=== PATIENT | female | born 1940 | race Caucasian/White ===

== ENCOUNTER 2022-03-26 15:29 | Inpatient (IN) ==
[2022-03-26] MEDS ORDERED: Naloxone 0.4 MG/ML INJ IVP PRN (21:47)
[2022-03-26] MEDS ORDERED: Ringers Solution, Lactated 1,000 ML IVC ONE (22:10)
[2022-03-26 22:51] LABS: Basophils # 0.1 K/mcL (0.0-0.2); Basophils % 0.2 %; Hematocrit 38.6 % (35.3-44.9); Hemoglobin 12.3 g/dL (11.5-15.4); Immature Granulocytes % 1.8 % (0-4); Lymphocytes % 2.4 %; Mean Corpuscular HGB Conc 31.9 g/dL (31.6-35.5); Mean Corpuscular Hemoglobin 32.7 pg (28.0-33.3); Mean Corpuscular Volume 102.7 fL (83.0-100.0); Mean Platelet Volume 9.3 fL (9.4-12.4); Monocytes # 1.6 K/mcL (0.0-1.3); Monocytes % 3.8 %; Platelet Count 231 K/mcL (140-400); Red Blood Count 3.76 M/mcL (3.82-4.97); Red Cell Distribution Width 17.2 % (11.5-14.5); Segmented Neutrophils % 91.8 %
[2022-03-26 22:54] LABS: Neutrophils # 39.7 K/mcL (1.6-8.9)
[2022-03-26 22:55] LABS: White Blood Count 43.2 K/mcL (4.3-11.1)
[2022-03-26 23:09] LABS: Anisocytosis 1+ (Not Present); Platelet Estimate Normal (Normal)
[2022-03-26 23:44] LABS: Albumin 2.1 g/dL (3.5-5.7); Albumin/Globulin Ratio 0.8 (1.1-2.2); Bilirubin,Total 1.1 mg/dL (0.3-1.0); Calcium 7.2 mg/dL (8.6-10.3); Globulin 2.7 g/dL (2.4-3.5); Magnesium 1.6 mg/dL (1.6-2.6); Phosphorous 5.3 mg/dL (2.7-4.5); Total Protein 4.8 g/dL (6.4-8.9)
[2022-03-26 23:45] LABS: Potassium 6.8 mEq/L (3.5-5.1)
[2022-03-26] MEDS ORDERED: 0.9 % Sodium Chloride 1,000 ML IVC SCH (23:45)
[2022-03-26] MEDS ORDERED: Calcium Gluconate 1gm/50mL 1 GM/50 ML BAG IVPB PRN (23:49)
[2022-03-27] MEDS ORDERED: D5% in Water 1,000 ML IVC PRN (00:59)
[2022-03-27] MEDS ORDERED: *HR* Dextrose 50 % in Water (Syg) 50 ML SYRINGE IVP PRN (00:59)
[2022-03-27] MEDS ORDERED: Dextrose Gel 15 GM/37.5 ML TUBE PO PRN ×2 (00:59)
[2022-03-27] MEDS ORDERED: Ertapenem 1,000 MG in 0.9 % Sodium Chloride Mini Bag 100 ML IVPB SCH (01:00)
[2022-03-27] MEDS: MetroNIDAZOLE 500 MG/100 ML 500 MG/100 ML BAG IVPB SCH ×2 (01:09→07:58)
[2022-03-27] MEDS ORDERED: Albumin 25% 25gram/100mL 25 GM/100 ML IV.SOLN IVPB ONE (03:04)
[2022-03-27 04:57] LABS: Red Blood Count 3.81 M/mcL (3.82-4.97)
[2022-03-27 04:57] LABS: VBG Ionized Calcium 0.84 mmol/L (1.15-1.35)
[2022-03-27 04:59] LABS: Hematocrit 39.3 % (35.3-44.9); Hemoglobin 12.4 g/dL (11.5-15.4); Mean Corpuscular HGB Conc 31.6 g/dL (31.6-35.5); Mean Corpuscular Hemoglobin 32.5 pg (28.0-33.3); Mean Corpuscular Volume 103.1 fL (83.0-100.0); Mean Platelet Volume 9.5 fL (9.4-12.4); Platelet Count 222 K/mcL (140-400); Red Cell Distribution Width 17.2 % (11.5-14.5)
[2022-03-27 05:21] LABS: Albumin 2.2 g/dL (3.5-5.7); Albumin/Globulin Ratio 0.8 (1.1-2.2); Bilirubin,Direct 0.5 mg/dL (0.0-0.2); Bilirubin,Indirect 0.6 mg/dL (0.0-1.0); Bilirubin,Total 1.1 mg/dL (0.3-1.0); Calcium 7.3 mg/dL (8.6-10.3); Globulin 2.8 g/dL (2.4-3.5); Magnesium 1.6 mg/dL (1.6-2.6); Troponin I 0.26 ng/mL (< 0.04)
[2022-03-27 05:38] LABS: White Blood Count 41.4 K/mcL (4.3-11.1)
[2022-03-27 05:46] LABS: Lymphocytes # 0.8 K/mcL (0.6-4.6); Neutrophils # 40.6 K/mcL (1.6-8.9); Platelet Estimate Normal (Normal)
[2022-03-27] MEDS ORDERED: *HR* Heparin 5,000 UNIT/ML VIAL SQ SCH (06:00)
[2022-03-27] MEDS ORDERED: Calcium Gluconate 1gm/50mL 1 GM/50 ML BAG IVPB PRN (06:00)
[2022-03-27] MEDS ORDERED: Albumin Human 5% 12.5 GM/250 ML IV.SOLN IVC SCH (08:30)
[2022-03-27] MEDS ORDERED: SODIUM ZIRCONIUM CYCLOSILICATE 5 GM POWD.PACK PO SCH (09:00)
[2022-03-27 09:32] VITALS: O2SAT 95
[2022-03-27] MEDS ORDERED: Morphine Sulfate 2 MG/ML SYRINGE IVP PRN (09:44)
[2022-03-27] MEDS ORDERED: Sodium Bicarbonate 150 MEQ in D5% in Water 1,000 ML IVC SCH ×2 (10:00→16:25)
[2022-03-27] MEDS: D5% in 0.9% NACL 1,000 ML IVC SCH ×2 (10:43)
[2022-03-27 11:14] VITALS: BP 123/83; PULSE 103
[2022-03-27] MEDS ORDERED: *HR* LORazepam 2 MG/ML VIAL IVP PRN (11:33)
[2022-03-27] MEDS ORDERED: *HR* FentaNYL (PF) 100 MCG/2 ML VIAL IVP PRN (11:44)
[2022-03-27 12:40] VITALS: TEMP 97.4
[2022-03-27] MEDS ORDERED: *HR* Heparin 5,000 UNIT/ML VIAL IVP PRN (13:40)
[2022-03-27] MEDS ORDERED: PrismaSATE BGK 4/2.5 5,000 ML CRRT SCH ×2 (13:45)
[2022-03-27] MEDS ORDERED: 0.9 % Sodium Chloride 1,000 ML PRIME SCH (13:45)
[2022-03-27] MEDS: *HR* FentaNYL (PF) 100 MCG/2 ML VIAL IVP PRN ×3 (18:26→23:51)
[2022-03-27] MEDS: *HR* LORazepam 2 MG/ML VIAL IVP PRN (23:59)
[2022-03-28] MEDS: *HR* FentaNYL (PF) 100 MCG/2 ML VIAL IVP PRN ×5 (02:44→21:04)
[2022-03-28] MEDS: *HR* LORazepam 2 MG/ML VIAL IVP PRN ×2 (04:54→07:51)
[2022-03-28] MEDS ORDERED: Saliva Stimulant 44.3ml BOTTLE PO PRN (08:13)
[2022-03-28] MEDS: Magic Mouthwash 10 ML UD Cup PO SCH ×2 (09:41→16:51)
== END 2022-03-28 22:55 | disposition expired | DRG 871 ==
LOC: ICNU → SUATTDRO 21:20 → 2ANU 03-27 16:21
PROVIDERS: ADMIT Pharmacist; ATTEND Family Medicine